=== PATIENT | female | born 1975 | race Caucasian/White ===

== ENCOUNTER → 2023-10-30 | Outpatient (CLI) | payer MEDICARE, BC, SELFPAY ==
--- NOTE | 2023-10-30 10:38 | MRI_ITS ---
STUDY: MRI RIGHT KNEE REASON FOR EXAM: Female, 48 years old. Pain in right leg, under knee running up inner thigh. Sharp pain turning into burning x 3 months. TECHNIQUE: Standardized fat and water weighted pulse sequences were obtained in all 3 orthogonal planes. COMPARISON: None. FINDINGS: Normal medial meniscus. Normal hyaline cartilage of the medial femorotibial compartment. Normal medial femoral condyle and tibial plateau. There is a minimal grade I MCL sprain with periligamentous edema (coronal T2 series 6 images 15-18). Normal distal semimembranosus, gracilis and semitendinosus tendons. Normal lateral meniscus. Normal hyaline cartilage of the lateral femorotibial compartment. Normal lateral femoral condyle and tibial plateau. Normal proximal tibiofibular articulation. Normal lateral collateral ( fibular ) ligament. Normal popliteus tendon. Normal biceps femoris tendon. Normal anterior cruciate ligament (ACL). Normal posterior cruciate ligament (PCL). There is low-grade patellofemoral chondromalacia. Congruent patellofemoral articulation. Normal medial and lateral patellar retinaculum. Normal quadriceps tendon. Normal patellar tendon. Normal Hoffa''s fat pad. There is a tiny joint effusion. There is a tiny popliteal cyst. There is a 1.5 cm ganglion cyst adjacent to the posterolateral aspect of the distal femoral metaphysis. There is mild subcutaneous soft tissue edema along the anterior aspect of the knee. The otherwise visualized osseous structures are unremarkable. MRI/Lower Ext Joint Only (Routine) IMPRESSION: Minimal grade I MCL sprain. Low-grade patellofemoral chondromalacia. Tiny joint effusion with a tiny popliteal cyst. 1.5 cm ganglion cyst adjacent to the posterolateral aspect of the distal femoral metaphysis. Mild subcutaneous soft tissue edema along the anterior aspect of the knee. No discrete meniscal tear. Electronically Signed: Shady Schreiber MD at 11:45 EST ,
== END | disposition home or self-care (01) ==
LOC: MRI 10:26
PROVIDERS: PCP Physician Assistant Medical; Referring Provider Physician Assistant Medical; Visit Provider Physician Assistant Medical
DX: M25.561 Pain in right knee (principal)
CPT/HCPCS: 73721